=== PATIENT | male | born 1955 | race Caucasian/White ===

== ENCOUNTER 2016-08-09 22:53 | Inpatient (IN) | payer BC ==
[~2016-08-09] VITALS: Ht 182.9 cm; Wt 95.1 kg
[~2016-08-09 22:53] MED LIST: Aspirin E.C. PO; CARDIZEM30 MG PO; COZAAR50 MG PO; CRESTOR5 MG PO; Cozaar PO; GABAPENTIN100 MG PO; HYDROCHLOROTH12.5 M3 PO; INVanz IV; LANOXIN,DIGIT0.25 MG PO; LOPRESSOR25 MG PO; Levothroid,Synthroid PO; Motrin PO; Norvasc PO; NovoLOG, HumaLOG SC; Roxicet,Percocet 5/3 PO; TELMISARTAN80 MG PO; TRAMADOL HCL50 MG PO; Tirosint PO; ZITHROMAX Z-PA250 MG PO
[2016-08-09 23:33] LABS: HEMATOCRIT 28.7 % (38.0-50.0); MCH 29.4 PG (29.0-34.0); MCHC 31.4 G/DL (30.0-36.0); MCV 93.8 FL (86-99); MEAN PLAT.VOLUME 10.4 uM^3 (9.0-12.4); PLATELET COUNT 268 K/uL (156-360); RBC DIS.WIDTH-CV 13.8 % (11.8-14.6); RBC DIS.WIDTH-SD 46.5 % (39-53); RED BLOOD COUNT 3.06 M/uL (4.00-5.50)
[2016-08-09 23:34] LABS: WHITE BLOOD COUNT 9.3 K/uL (4.1-10.2)
[2016-08-09 23:42] LABS: CHLORIDE 106 mEq/L (99-109); POTASSIUM 5.1 mEq/L (3.7-5.4); SODIUM 137 mEq/L (136-147)
[2016-08-09 23:45] LABS: ANION GAP 10 MEQ/L (2-14)
[2016-08-09 23:47] LABS: GFR ESTIMATE (CALCULATED) 17 mL/min/; GLUCOSE 585 mg/dL (70-99)
[2016-08-09 23:50] LABS: UREA NITROGEN (BUN) 62 mg/dL (9-23)
[2016-08-09 23:57] LABS: TROP-I INTERPRETATION POSITIVE; TROPONIN-I 0.62 ng/mL (0.0-0.30)
[2016-08-10] MEDS ORDERED: CARDIZEM CD,CA180 MG PO (00:35)
[2016-08-10] MEDS ORDERED: LEVOTHYROXINE125 MCG PO (00:37)
[2016-08-10] MEDS ORDERED: NOVOLOG PE100 UNITS/ SC (00:38)
[2016-08-10] MEDS ORDERED: COZAAR50 MG PO (00:39)
[2016-08-10] MEDS ORDERED: ADULT LOW DOSE81 M1 PO (00:39)
[2016-08-10] MEDS ORDERED: TRESIBA FL100 UNIT/1 SC (00:40)
[2016-08-10] MEDS ORDERED: SPIRIVA1 INHALATI IH (00:41)
[2016-08-10] MEDS ORDERED: ROCALTROL0.25 MCG PO (00:41)
[2016-08-10] MEDS ORDERED: DOMP10T PO (00:42)
[2016-08-10 00:43] LABS: CARBON DIOXIDE (BICARBONATE) 24.6 MEQ/L (20-31)
[2016-08-10 00:46] LABS: PROTHROMBIN TIME 10.2 (9.2-11.2); PTT 27.9 (25-32)
[2016-08-10 02:07] LABS: POINT-OF-CARE METER ID UU14100415
[2016-08-10 03:30] VITALS: BP 156/75
[2016-08-10 06:10] LABS: POINT-OF-CARE METER ID UU13113698
[2016-08-10 07:00] VITALS: BP 138/68
[2016-08-10 08:06] LABS: TROP-I INTERPRETATION POSITIVE; TROPONIN-I 0.81 ng/mL (0.0-0.30)
[2016-08-10 09:34] LABS: POINT-OF-CARE METER ID UU13113781
[2016-08-10 11:15] VITALS: BP 155/79
[2016-08-10 14:56] LABS: TROP-I INTERPRETATION POSITIVE; TROPONIN-I 0.67 ng/mL (0.0-0.30)
[2016-08-10 16:15] VITALS: BP 160/77
[2016-08-10 16:22] LABS: POINT-OF-CARE METER ID UU14174216
[2016-08-10 19:10] VITALS: BP 149/75
[2016-08-10 20:35] LABS: POINT-OF-CARE METER ID UU13113698
[2016-08-10 23:00] VITALS: BP 120/59
[2016-08-11 03:50] VITALS: BP 133/69
[2016-08-11 05:35] LABS: CHLORIDE 108 mEq/L (99-109); POTASSIUM 4.3 mEq/L (3.7-5.4); SODIUM 138 mEq/L (136-147)
[2016-08-11 05:38] LABS: CHLORIDE 107 mEq/L (99-109); POTASSIUM 4.3 mEq/L (3.7-5.4); SODIUM 138 mEq/L (136-147)
[2016-08-11 05:39] LABS: ANION GAP 7 MEQ/L (2-14); GLUCOSE 89 mg/dL (70-99)
[2016-08-11 05:41] LABS: ANION GAP 7 MEQ/L (2-14); GFR ESTIMATE (CALCULATED) 18 mL/min/
[2016-08-11 05:42] LABS: TOTAL BILIRUBIN 0.1 mg/dL (0.0-1.0); UREA NITROGEN (BUN) 63 mg/dL (9-23)
[2016-08-11 05:43] LABS: ALKALINE PHOSPHATASE 75 IU/L (3-129)
[2016-08-11 05:44] LABS: GFR ESTIMATE (CALCULATED) 18 mL/min/; URIC ACID 8.5 mg/dL (3.1-9.2)
[2016-08-11 05:45] LABS: UREA NITROGEN (BUN) 62 mg/dL (9-23)
[2016-08-11 05:52] LABS: GLUCOSE 90 mg/dL (70-99)
[2016-08-11 07:15] VITALS: BP 147/73
[2016-08-11 07:31] LABS: POINT-OF-CARE METER ID UU13113698
[2016-08-11 07:49] LABS: POINT-OF-CARE METER ID UU13113698
[2016-08-11 08:11] LABS: POINT-OF-CARE METER ID UU13113698
[2016-08-11 11:47] LABS: POINT-OF-CARE METER ID UU13113698
[2016-08-11 13:28] LABS: POINT-OF-CARE METER ID UU13113698
[2016-08-11 16:15] VITALS: BP 160/78
[2016-08-11 21:00] VITALS: BP 156/78
[2016-08-11 21:33] LABS: POINT-OF-CARE METER ID UU14174216
[2016-08-11 23:47] VITALS: BP 144/77
[2016-08-12 04:00] VITALS: BP 124/69
[2016-08-12 06:56] LABS: EOSINOPHIL (%) 2.3 % (0-5); EOSINOPHIL COUNT 0.2 K/uL (0-0.3); IMMATURE GRANULOCYTE (%) 0.3 % (0.0-0.7); INSTRUMENT ABS NEUTROPHIL CT 4.2 K/uL; LYMPHOCYTE COUNT 2.1 K/uL (1.0-2.8); MCH 29.4 PG (29.0-34.0); MCHC 31.5 G/DL (30.0-36.0); MCV 93.2 FL (86-99); MEAN PLAT.VOLUME 10.9 uM^3 (9.0-12.4); MONOCYTE (%) 11.1 % (3-12); MONOCYTE COUNT 0.8 K/uL (0-0.8); NEUTROPHIL (%) 57.7 % (45-76); NEUTROPHIL COUNT 4.2 K/uL (1.8-6.4); PLATELET COUNT 277 K/uL (156-360); RBC DIS.WIDTH-CV 13.6 % (11.8-14.6); RED BLOOD COUNT 2.79 M/uL (4.00-5.50); WHITE BLOOD COUNT 7.3 K/uL (4.1-10.2)
[2016-08-12 07:25] LABS: ANION GAP 10 MEQ/L (2-14); CHLORIDE 106 MEQ/L (99-109); GFR ESTIMATE (CALCULATED) 19 mL/min/; GLUCOSE 60 mg/dL (70-99); POTASSIUM 4.3 MEQ/L (3.7-5.4); SAMPLE HEMOLYSIS CHECK 0; SAMPLE ICTERIC CHECK 0; SAMPLE LIPEMIA CHECK 0; SODIUM 141 MEQ/L (136-147); UREA NITROGEN (BUN) 63 mg/dL (9-23)
[2016-08-12 07:43] LABS: POINT-OF-CARE METER ID UU14174216
[2016-08-12 08:30] VITALS: BP 161/76
[2016-08-12 08:57] LABS: POINT-OF-CARE METER ID UU14174216
[2016-08-12 11:24] LABS: POINT-OF-CARE METER ID UU14174216
[2016-08-12 12:03] VITALS: BP 179/92
[2016-08-12 16:00] VITALS: BP 164/86
[2016-08-12 16:23] LABS: POINT-OF-CARE METER ID UU14174216
[2016-08-12 20:10] VITALS: BP 156/73
[2016-08-12 22:37] LABS: POINT-OF-CARE METER ID UU13113698
[2016-08-12 23:14] VITALS: BP 160/78
[2016-08-13 03:45] VITALS: BP 143/70
[2016-08-13 07:06] LABS: ANION GAP 7 MEQ/L (2-14); CHLORIDE 104 MEQ/L (99-109); GFR ESTIMATE (CALCULATED) 18 mL/min/; GLUCOSE 67 mg/dL (70-99); POTASSIUM 4.3 MEQ/L (3.7-5.4); SAMPLE HEMOLYSIS CHECK 0; SAMPLE ICTERIC CHECK 0; SAMPLE LIPEMIA CHECK 0; SODIUM 137 MEQ/L (136-147); UREA NITROGEN (BUN) 61 mg/dL (9-23)
[2016-08-13 07:08] LABS: POINT-OF-CARE METER ID UU14174216
[2016-08-13 09:25] VITALS: BP 162/79
[2016-08-13 11:14] LABS: POINT-OF-CARE METER ID UU14174216
[2016-08-13 16:30] VITALS: BP 150/72
[2016-08-13 16:34] LABS: POINT-OF-CARE METER ID UU13113781
[2016-08-13 19:20] VITALS: BP 142/67
[2016-08-13 21:37] LABS: POINT-OF-CARE METER ID UU13113781
[2016-08-14] VITALS (7 sets, daily range): BP systolic 131–175; BP diastolic 62–83
[2016-08-14 07:35] LABS: EOSINOPHIL (%) 2.9 % (0-5); EOSINOPHIL COUNT 0.2 K/uL (0-0.3); HEMATOCRIT 26.6 % (38.0-50.0); IMMATURE GRANULOCYTE (%) 0.3 % (0.0-0.7); INSTRUMENT ABS NEUTROPHIL CT 4.4 K/uL; LYMPHOCYTE COUNT 1.7 K/uL (1.0-2.8); MCH 28.9 PG (29.0-34.0); MCHC 30.8 G/DL (30.0-36.0); MCV 93.7 FL (86-99); MEAN PLAT.VOLUME 10.5 uM^3 (9.0-12.4); MONOCYTE (%) 11.6 % (3-12); MONOCYTE COUNT 0.8 K/uL (0-0.8); NEUTROPHIL (%) 61.2 % (45-76); NEUTROPHIL COUNT 4.4 K/uL (1.8-6.4); PLATELET COUNT 257 K/uL (156-360); RBC DIS.WIDTH-CV 13.8 % (11.8-14.6); RBC DIS.WIDTH-SD 47.2 % (39-53); RED BLOOD COUNT 2.84 M/uL (4.00-5.50); WHITE BLOOD COUNT 7.2 K/uL (4.1-10.2)
[2016-08-14 07:38] LABS: POINT-OF-CARE METER ID UU13113781
[2016-08-14 07:58] LABS: ANION GAP 8 MEQ/L (2-14); CHLORIDE 105 MEQ/L (99-109); GFR ESTIMATE (CALCULATED) 18 mL/min/; POTASSIUM 4.9 MEQ/L (3.7-5.4); SAMPLE HEMOLYSIS CHECK 0; SAMPLE ICTERIC CHECK 0; SAMPLE LIPEMIA CHECK 0; SODIUM 139 MEQ/L (136-147); UREA NITROGEN (BUN) 66 mg/dL (9-23)
[2016-08-14 08:06] LABS: GLUCOSE 157 mg/dL (70-99)
[2016-08-14 11:41] LABS: POINT-OF-CARE METER ID UU13113819
[2016-08-14 16:40] LABS: POINT-OF-CARE METER ID UU13113698
[2016-08-14 21:03] LABS: POINT-OF-CARE METER ID UU13113781
[2016-08-15 04:33] VITALS: BP 160/70
[2016-08-15 07:07] LABS: EOSINOPHIL (%) 2.1 % (0-5); EOSINOPHIL COUNT 0.2 K/uL (0-0.3); HEMATOCRIT 26.3 % (38.0-50.0); IMMATURE GRANULOCYTE (%) 0.4 % (0.0-0.7); INSTRUMENT ABS NEUTROPHIL CT 5.9 K/uL; LYMPHOCYTE COUNT 1.5 K/uL (1.0-2.8); MCH 29.4 PG (29.0-34.0); MCHC 30.4 G/DL (30.0-36.0); MCV 96.7 FL (86-99); MEAN PLAT.VOLUME 10.9 uM^3 (9.0-12.4); MONOCYTE (%) 10.2 % (3-12); MONOCYTE COUNT 0.9 K/uL (0-0.8); NEUTROPHIL (%) 68.8 % (45-76); NEUTROPHIL COUNT 5.9 K/uL (1.8-6.4); PLATELET COUNT 245 K/uL (156-360); RBC DIS.WIDTH-CV 13.9 % (11.8-14.6); RBC DIS.WIDTH-SD 49.1 % (39-53); RED BLOOD COUNT 2.72 M/uL (4.00-5.50); WHITE BLOOD COUNT 8.5 K/uL (4.1-10.2)
[2016-08-15 07:15] LABS: ANION GAP 7 MEQ/L (2-14); CHLORIDE 103 MEQ/L (99-109); GFR ESTIMATE (CALCULATED) 18 mL/min/; MAGNESIUM 2.3 mg/dl (1.3-2.7); SAMPLE HEMOLYSIS CHECK 0; SAMPLE ICTERIC CHECK 0; SAMPLE LIPEMIA CHECK 0; SODIUM 135 MEQ/L (136-147); UREA NITROGEN (BUN) 67 mg/dL (9-23)
[2016-08-15 07:16] LABS: GLUCOSE 264 mg/dL (70-99); POTASSIUM 5.9 MEQ/L (3.7-5.4)
[2016-08-15 08:12] LABS: POINT-OF-CARE METER ID UU13113698
[2016-08-15 09:00] VITALS: BP 136/65
[2016-08-15 11:14] LABS: POINT-OF-CARE METER ID UU13113698
[2016-08-15] MEDS ORDERED: AMLODIPINE BESYL5 MG PO (14:54)
[2016-08-15] MEDS ORDERED: CARVEDILOL6.25 MG PO (14:54)
[2016-08-15] MEDS ORDERED: LASIX80 MG PO (14:54)
== END 2016-08-15 17:16 | disposition home or self-care (01) | DRG 280 ==
LOC: EME 22:53 → 4EAST 08-10 00:58 → EDOF 08-10 00:58 → 4EAST 08-10 03:24
PROVIDERS: Emergency Medicine; Internal Medicine; Internal Medicine Nephrology; Physician Assistant
DX: I21.4 Non-ST elevation (NSTEMI) myocardial infarction (principal); I50.31 Acute diastolic (congestive) heart failure; N17.9 Acute kidney failure, unspecified; N18.4 Chronic kidney disease, stage 4 (severe); L97.419 Non-pressure chronic ulcer of right heel and midfoot with unspecified severity; I13.0 Hypertensive heart and chronic kidney disease with heart failure and stage 1 through stage 4 chronic kidney disease, or unspecified chronic kidney disease; E11.21 Type 2 diabetes mellitus with diabetic nephropathy; E11.65 Type 2 diabetes mellitus with hyperglycemia; E78.5 Hyperlipidemia, unspecified; F17.210 Nicotine dependence, cigarettes, uncomplicated; E11.22 Type 2 diabetes mellitus with diabetic chronic kidney disease; J44.9 Chronic obstructive pulmonary disease, unspecified; I27.2 Other secondary pulmonary hypertension; D63.1 Anemia in chronic kidney disease; I25.10 Atherosclerotic heart disease of native coronary artery without angina pectoris; E11.649 Type 2 diabetes mellitus with hypoglycemia without coma; E87.5 Hyperkalemia; E11.621 Type 2 diabetes mellitus with foot ulcer; E86.0 Dehydration; E11.319 Type 2 diabetes mellitus with unspecified diabetic retinopathy without macular edema; E11.40 Type 2 diabetes mellitus with diabetic neuropathy, unspecified; G47.30 Sleep apnea, unspecified; I08.1 Rheumatic disorders of both mitral and tricuspid valves; Z89.619 Acquired absence of unspecified leg above knee
CPT/HCPCS: 36415; 71010; 80048; 80053; 80069; 81003; 82010; 82803; 82948; 83605; 83735; 83880; 84132 91; 84484; 84550; 85025; 85027; 85610; 85730; 93005; 93306; 94640; 94640 76; 94799; 99281; 99285; C1760; C1769; C1887; C1894; J1644; J1815; J1940; J2250; J3010; J7608

== ENCOUNTER 2017-06-15 17:43 | Inpatient (IN) | payer BC ==
[~2017-06-15] VITALS: Ht 182.9 cm; Wt 90.3 kg
[~2017-06-15 17:43] MED LIST changes: +ADULT LOW DOSE81 M1 PO; +AMLODIPINE BESYL5 MG PO; +CARDIZEM CD,CA180 MG PO; +CARVEDILOL6.25 MG PO; +DOMP10T PO; +LASIX80 MG PO; +LEVOTHYROXINE112 MCG PO; +NOVOLOG PE100 UNITS/ SC; +ROCALTROL0.25 MCG PO; +SPIRIVA1 INHALATI IH; +TRESIBA FL100 UNIT/1 SC
[2017-06-15 18:33] LABS: HEMATOCRIT 28.1 % (38.0-50.0); MCH 29.9 PG (29.0-34.0); MCV 93.4 FL (86-99); PLATELET COUNT 199 K/uL (156-360); RBC DIS.WIDTH-CV 13.3 % (11.8-14.6); RBC DIS.WIDTH-SD 45.6 % (39-53); RED BLOOD COUNT 3.01 M/uL (4.00-5.50)
[2017-06-15 18:40] LABS: INTER. NORMALIZED RATIO 1.1
[2017-06-15 18:41] LABS: CHLORIDE 103 mEq/L (99-109); POTASSIUM 4.2 mEq/L (3.7-5.4); SODIUM 137 mEq/L (136-147)
[2017-06-15 18:42] LABS: PTT 28.4 SEC (25-37)
[2017-06-15 18:43] LABS: GLUCOSE 129 mg/dL (70-99)
[2017-06-15 18:47] LABS: CREATININE 5.8 mg/dL (0.6-1.3); GFR ESTIMATE (CALCULATED) 11 mL/min/ (58.99-99999); UREA NITROGEN (BUN) 84 mg/dL (9-23)
[2017-06-15 18:55] LABS: TROP-I INTERPRETATION NEGATIVE; TROPONIN-I 0.06 ng/mL (0.0-0.30)
[2017-06-15] MEDS ORDERED: FUROSEMIDE40 MG PO (19:37)
[2017-06-15] MEDS ORDERED: CALCIUM ACETAT667 MG PO (19:43)
[2017-06-15] MEDS ORDERED: VITAMIN B125000 MCG PO (19:44)
[2017-06-15] MEDS ORDERED: VITAMIN D2000 UNIT PO (19:44)
[2017-06-15] MEDS ORDERED: HYDRALAZINE HCL10 MG PO (19:45)
[2017-06-15] MEDS ORDERED: METOPROLOL SUCC50 MG PO (19:46)
[2017-06-15] MEDS ORDERED: GABAPENTIN100 MG PO (19:47)
[2017-06-15] MEDS ORDERED: CLONIDINE HCL0.1 MG PO (19:49)
[2017-06-15] MEDS ORDERED: ZANTAC150 MG PO (19:50)
[2017-06-15] MEDS ORDERED: TRAMADOL HCL50 MG PO (19:50)
[2017-06-15] MEDS ORDERED: VENTOLIN HFA18 GM IH (19:51)
[2017-06-16] VITALS (7 sets, daily range): BP systolic 130–188; BP diastolic 60–88
[2017-06-16 05:44] LABS: BASOPHIL (%) 0.4 % (0-1); EOSINOPHIL (%) 0.8 % (0-5); HEMATOCRIT 25.5 % (38.0-50.0); HEMOGLOBIN 8.1 G/DL (12.5-16.6); IMMATURE GRANULOCYTE (%) 0.4 % (0.0-0.7); LYMPHOCYTE (%) 22.1 % (15-42); LYMPHOCYTE COUNT 1.1 K/uL (1.0-2.8); MCH 30.1 PG (29.0-34.0); MCHC 31.8 G/DL (30.0-36.0); MCV 94.8 FL (86-99); MONOCYTE (%) 13.6 % (3-12); MONOCYTE COUNT 0.7 K/uL (0-0.8); NEUTROPHIL (%) 62.7 % (45-76); NEUTROPHIL COUNT 3.2 K/uL (1.8-6.4); PLATELET COUNT 166 K/uL (156-360); RBC DIS.WIDTH-CV 13.4 % (11.8-14.6); RBC DIS.WIDTH-SD 46.3 % (39-53); RED BLOOD COUNT 2.69 M/uL (4.00-5.50); WHITE BLOOD COUNT 5.1 K/uL (4.1-10.2)
[2017-06-16 06:06] LABS: CHLORIDE 104 MEQ/L (99-109); CREATININE 6.2 MG/DL (0.6-1.3); GFR ESTIMATE (CALCULATED) 10 mL/min/ (58.99-99999); POTASSIUM 3.8 MEQ/L (3.7-5.4); SODIUM 140 MEQ/L (136-147); UREA NITROGEN (BUN) 82 mg/dL (9-23)
[2017-06-16 06:10] LABS: GLUCOSE 44 mg/dL (70-99)
[2017-06-16 08:12] LABS: THYROTROPIN (TSH) 0.18 MIU/L (0.4-5.5)
[2017-06-16 10:38] LABS: IRON 20 MCG/DL (35-150); PHOSPHORUS 7.1 mg/dL (2.5-4.9); TRANSFERRIN (TIBC) 168.6 mg/dL (215-380); TRANSFERRIN SATUR. 12 % (20-55)
[2017-06-17 03:35] VITALS: BP 151/68
[2017-06-17 06:17] LABS: HEMATOCRIT 27.1 % (38.0-50.0); HEMOGLOBIN 8.7 G/DL (12.5-16.6); MCH 30.1 PG (29.0-34.0); MCHC 32.1 G/DL (30.0-36.0); MCV 93.8 FL (86-99); PLATELET COUNT 178 K/uL (156-360); RBC DIS.WIDTH-CV 13.2 % (11.8-14.6); RBC DIS.WIDTH-SD 45.5 % (39-53); RED BLOOD COUNT 2.89 M/uL (4.00-5.50); WHITE BLOOD COUNT 4.9 K/uL (4.1-10.2)
[2017-06-17 06:45] LABS: ALBUMIN 2.6 G/DL (3.2-4.8); CHLORIDE 103 MEQ/L (99-109); CREATININE 6.4 MG/DL (0.6-1.3); GFR ESTIMATE (CALCULATED) 9 mL/min/ (58.99-99999); PHOSPHORUS 6.3 mg/dL (2.5-4.9); POTASSIUM 4.1 MEQ/L (3.7-5.4); SODIUM 140 MEQ/L (136-147); UREA NITROGEN (BUN) 84 mg/dL (9-23)
[2017-06-17 06:52] LABS: GLUCOSE 155 mg/dL (70-99)
[2017-06-17 07:32] VITALS: BP 142/65
[2017-06-17] MEDS ORDERED: AZITHROMYCIN250 MG1 PO (11:59)
[2017-06-17] MEDS ORDERED: CEFDINIR300 MG PO (12:00)
[2017-06-17] MEDS ORDERED: ARANESP60 MCG/0.3 SC (12:03)
[2017-06-17] MEDS ORDERED: OSELTAMIVIR PHO30 MG PO (12:03)
[2017-06-17] MEDS ORDERED: IRON325 M1 PO (12:10)
== END 2017-06-17 14:30 | disposition home or self-care (01) | DRG 194 ==
LOC: EME 17:43 → 5SOUTH 19:28 → ENRESERV 19:28 → EDOF 19:28 → ENRESERV 20:02 → 5SOUTH 20:40
PROVIDERS: Emergency Medicine; Hospitalist; Internal Medicine
DX: J10.08 Influenza due to other identified influenza virus with other specified pneumonia (principal); J15.9 Unspecified bacterial pneumonia; J10.01 Influenza due to other identified influenza virus with the same other identified influenza virus pneumonia; J44.0 Chronic obstructive pulmonary disease with (acute) lower respiratory infection; I13.2 Hypertensive heart and chronic kidney disease with heart failure and with stage 5 chronic kidney disease, or end stage renal disease; I50.32 Chronic diastolic (congestive) heart failure; N18.5 Chronic kidney disease, stage 5; E11.22 Type 2 diabetes mellitus with diabetic chronic kidney disease; E11.21 Type 2 diabetes mellitus with diabetic nephropathy; E11.42 Type 2 diabetes mellitus with diabetic polyneuropathy; E11.51 Type 2 diabetes mellitus with diabetic peripheral angiopathy without gangrene; D63.1 Anemia in chronic kidney disease; D50.9 Iron deficiency anemia, unspecified; E78.5 Hyperlipidemia, unspecified; E83.39 Other disorders of phosphorus metabolism; I25.10 Atherosclerotic heart disease of native coronary artery without angina pectoris; N25.81 Secondary hyperparathyroidism of renal origin; E03.9 Hypothyroidism, unspecified; I25.2 Old myocardial infarction; Z79.4 Long term (current) use of insulin; Z95.1 Presence of aortocoronary bypass graft; Z87.891 Personal history of nicotine dependence; Z79.82 Long term (current) use of aspirin
CPT/HCPCS: 71046; 80048; 80069; 82948; 83540; 84100; 84439; 84443; 84466; 84484; 85025; 85027; 85610; 85730; 87040; 87502; 93005; 94799; 99202; 99281; 99283; J0456; J0696; J0881; J1644; J1756; J7050

== ENCOUNTER → 2017-07-23 | Outpatient (CLI) | payer BC ==
[~2017-07-23] VITALS: Ht 182.9 cm; Wt 81.6 kg
[~2017-07-23] MED LIST changes: +APRESOLINE10 MG PO; +ARANESP60 MCG/0.3 SC; +AZITHROMYCIN250 MG1 PO; +CALCIUM ACETAT667 MG PO; +CEFDINIR300 MG PO; +CLONIDINE HCL0.1 MG PO; +FEOSOL325 MG PO; +FUROSEMIDE40 MG PO; +IRON325 M1 PO; +METOPROLOL SUCC50 MG PO; +NORVASC5 MG PO; +OSELTAMIVIR PHO30 MG PO; +PROCRIT2000 UNIT1 SC; +RENVELA800 MG PO; +VELTASSA8.4 GM PO; +VENTOLIN HFA18 GM IH; +VITAMIN B125000 MCG PO; +VITAMIN D2000 UNIT PO; +ZANTAC150 MG PO
== END | disposition home or self-care (01) ==
LOC: AMB 07-02 12:00
PROVIDERS: Internal Medicine Gastroenterology
PROC: 0DJD8ZZ Inspection of Lower Intestinal Tract, Via Natural or Artificial Opening Endoscopic (ICD-10-PCS; principal; 2017-07-23)
DX: D12.2 Benign neoplasm of ascending colon (principal); Z86.010 Personal history of colon polyps; Z53.09 Procedure and treatment not carried out because of other contraindication; N28.9 Disorder of kidney and ureter, unspecified; I10 Essential (primary) hypertension; E03.9 Hypothyroidism, unspecified; E10.319 Type 1 diabetes mellitus with unspecified diabetic retinopathy without macular edema; E10.21 Type 1 diabetes mellitus with diabetic nephropathy; E78.5 Hyperlipidemia, unspecified; Z87.891 Personal history of nicotine dependence; Z79.4 Long term (current) use of insulin; Z79.82 Long term (current) use of aspirin; Z88.8 Allergy status to other drugs, medicaments and biological substances
CPT/HCPCS: 82948; J2250

== ENCOUNTER → 2017-08-14 | Outpatient (CLI) | payer BC ==
[~2017-08-14] VITALS: Ht 188 cm; Wt 89.8 kg
[~2017-08-14] MED LIST changes: +CALCITRIOL0.25 MCG PO; +PROCRIT3000 UNIT1 SC; +PROTONIX40 MG PO; +SUPREP BOWEL P354 ML PO
== END | disposition home or self-care (01) ==
LOC: AMB 11:59
PROVIDERS: Internal Medicine Gastroenterology
PROC: 0DBK8ZX Excision of Ascending Colon, Via Natural or Artificial Opening Endoscopic, Diagnostic (ICD-10-PCS; principal; 2017-08-14)
DX: D12.2 Benign neoplasm of ascending colon (principal)
CPT/HCPCS: 82948; 88305; J1170; J2250; J2405

== ENCOUNTER 2017-08-23 18:45 | Observation (INO) | payer BC ==
[~2017-08-23] VITALS: Ht 182.9 cm; Wt 89.5 kg
[2017-08-23] MEDS ORDERED: AMLODIPINE BESYL5 MG PO (20:55)
[2017-08-23 21:00] LABS: HEMATOCRIT 28.8 % (38.0-50.0); HEMOGLOBIN 9.4 G/DL (12.5-16.6); MCHC 32.6 G/DL (30.0-36.0); PLATELET COUNT 228 K/uL (156-360); RBC DIS.WIDTH-CV 13.2 % (11.8-14.6); RBC DIS.WIDTH-SD 43.9 % (39-53); RED BLOOD COUNT 3.13 M/uL (4.00-5.50); WHITE BLOOD COUNT 10.8 K/uL (4.1-10.2)
[2017-08-23 21:10] LABS: ALBUMIN 3.2 g/dL (3.2-4.8); CHLORIDE 102 mEq/L (99-109); POTASSIUM 5.1 mEq/L (3.7-5.4); SODIUM 137 mEq/L (136-147)
[2017-08-23 21:12] LABS: TOTAL PROTEIN 6.1 g/dL (6.4-8.3)
[2017-08-23 21:14] LABS: TOTAL BILIRUBIN 0.3 mg/dL (0.0-1.0)
[2017-08-23 21:16] LABS: ALKALINE PHOSPHATASE 79 IU/L (3-129); CREATININE 5.8 mg/dL (0.6-1.3); GFR ESTIMATE (CALCULATED) 11 mL/min/ (58.99-99999)
[2017-08-23 21:17] LABS: UREA NITROGEN (BUN) 90 mg/dL (9-23)
[2017-08-23 21:18] LABS: AST (GOT) 10 IU/L (2-34)
[2017-08-23 21:19] LABS: ALT (GPT) 11 IU/L (3-49)
[2017-08-23] MEDS ORDERED: ZANTAC150 MG PO (21:19)
[2017-08-23] MEDS ORDERED: VENTOLIN HFA18 GM IH (21:20)
[2017-08-23 21:21] LABS: GLUCOSE 411 mg/dL (70-99)
[2017-08-23 23:45] VITALS: BP 145/70
[2017-08-24 05:54] LABS: BASOPHIL (%) 0.5 % (0-1); EOSINOPHIL (%) 4.9 % (0-5); EOSINOPHIL COUNT 0.4 K/uL (0-0.3); HEMATOCRIT 24.5 % (38.0-50.0); HEMOGLOBIN 7.8 G/DL (12.5-16.6); IMMATURE GRANULOCYTE (%) 0.5 % (0.0-0.7); LYMPHOCYTE COUNT 1.5 K/uL (1.0-2.8); MCH 29.3 PG (29.0-34.0); MCHC 31.8 G/DL (30.0-36.0); MCV 92.1 FL (86-99); MONOCYTE (%) 7.9 % (3-12); MONOCYTE COUNT 0.6 K/uL (0-0.8); NEUTROPHIL (%) 66.2 % (45-76); PLATELET COUNT 188 K/uL (156-360); RBC DIS.WIDTH-CV 13.2 % (11.8-14.6); RBC DIS.WIDTH-SD 43.9 % (39-53); RED BLOOD COUNT 2.66 M/uL (4.00-5.50); WHITE BLOOD COUNT 7.6 K/uL (4.1-10.2)
[2017-08-24 06:12] LABS: CHLORIDE 108 MEQ/L (99-109); CREATININE 5.5 MG/DL (0.6-1.3); GFR ESTIMATE (CALCULATED) 11 mL/min/ (58.99-99999); POTASSIUM 4.1 MEQ/L (3.7-5.4); SODIUM 142 MEQ/L (136-147); UREA NITROGEN (BUN) 77 mg/dL (9-23)
[2017-08-24 06:13] LABS: GLUCOSE 96 mg/dL (70-99)
[2017-08-24 07:40] VITALS: BP 183/77
[2017-08-24 10:49] LABS: HEMATOCRIT 24.9 % (38.0-50.0); MCV 92.2 FL (86-99)
[2017-08-24 16:27] VITALS: BP 178/84
[2017-08-24 16:31] LABS: IRON 32 MCG/DL (35-150)
[2017-08-24 16:32] LABS: TRANSFERRIN SATUR. 20 % (20-55)
[2017-08-25 06:10] LABS: HEMATOCRIT 24.4 % (38.0-50.0); HEMOGLOBIN 7.9 G/DL (12.5-16.6); MCH 30.2 PG (29.0-34.0); MCHC 32.4 G/DL (30.0-36.0); MCV 93.1 FL (86-99); PLATELET COUNT 193 K/uL (156-360); RBC DIS.WIDTH-CV 13.3 % (11.8-14.6); RBC DIS.WIDTH-SD 44.6 % (39-53); RED BLOOD COUNT 2.62 M/uL (4.00-5.50); WHITE BLOOD COUNT 7.5 K/uL (4.1-10.2)
[2017-08-25 06:34] LABS: CHLORIDE 105 MEQ/L (99-109); CREATININE 5.3 MG/DL (0.6-1.3); GFR ESTIMATE (CALCULATED) 12 mL/min/ (58.99-99999); POTASSIUM 4.5 MEQ/L (3.7-5.4); SODIUM 141 MEQ/L (136-147); UREA NITROGEN (BUN) 81 mg/dL (9-23)
[2017-08-25 06:44] LABS: GLUCOSE 36 mg/dL (70-99)
[2017-08-25 07:43] VITALS: BP 153/73
[2017-08-25 10:19] LABS: HEMOGLOBIN A1c (GLYCOHEMOGLOB) 12.6 % (Below 5.7)
[2017-08-25] MEDS ORDERED: APRESOLINE50 MG PO (11:52)
[2017-08-25] MEDS ORDERED: CEFDINIR300 MG PO (11:53)
== END 2017-08-25 14:45 | disposition home or self-care (01) ==
LOC: EME 18:45 → EDOF 22:02 → 5EAST 22:02 → EDOF 22:02 → ENRESERV 22:11 → 5EAST 23:45 → ENPENDDIS 08-25 → 5EAST 08-25 14:45
PROVIDERS: Internal Medicine; Nurse Practitioner Family
DX: J18.9 Pneumonia, unspecified organism (principal); I13.2 Hypertensive heart and chronic kidney disease with heart failure and with stage 5 chronic kidney disease, or end stage renal disease; E11.22 Type 2 diabetes mellitus with diabetic chronic kidney disease; I50.32 Chronic diastolic (congestive) heart failure; N18.6 End stage renal disease; J44.0 Chronic obstructive pulmonary disease with (acute) lower respiratory infection; R13.10 Dysphagia, unspecified; N25.81 Secondary hyperparathyroidism of renal origin; E86.0 Dehydration; E83.39 Other disorders of phosphorus metabolism; E83.51 Hypocalcemia; E11.65 Type 2 diabetes mellitus with hyperglycemia; E11.649 Type 2 diabetes mellitus with hypoglycemia without coma; E11.42 Type 2 diabetes mellitus with diabetic polyneuropathy; E11.51 Type 2 diabetes mellitus with diabetic peripheral angiopathy without gangrene; G47.30 Sleep apnea, unspecified; E78.5 Hyperlipidemia, unspecified; E03.9 Hypothyroidism, unspecified; D50.9 Iron deficiency anemia, unspecified; D63.1 Anemia in chronic kidney disease; G43.909 Migraine, unspecified, not intractable, without status migrainosus; I25.10 Atherosclerotic heart disease of native coronary artery without angina pectoris; I25.2 Old myocardial infarction; K21.9 Gastro-esophageal reflux disease without esophagitis; M19.90 Unspecified osteoarthritis, unspecified site; Z79.4 Long term (current) use of insulin; Z83.3 Family history of diabetes mellitus; Z87.891 Personal history of nicotine dependence; Z76.82 Awaiting organ transplant status; Z95.1 Presence of aortocoronary bypass graft; Z99.2 Dependence on renal dialysis
CPT/HCPCS: 71046; 80048; 80053; 82272; 82948; 83036; 83540; 84100; 84466; 85014; 85018; 85025; 85027; 87040; 87651 90; 94640; 94640 76; 99202; 99281; 99284; G0378; J0456; J0696; J0881; J1644; J1756; J1815; J7050

== ENCOUNTER 2017-09-29 14:34 | Day surgery (SDC) | payer BC ==
[~2017-09-29] VITALS: Ht 182.9 cm; Wt 83.9 kg
[~2017-09-29 14:34] MED LIST changes: +APRESOLINE50 MG PO
[2017-09-29 14:57] VITALS: BP 175/79
[2017-09-29 15:14] LABS: HEMATOCRIT 31.7 % (38.0-50.0); HEMOGLOBIN 10.2 G/DL (12.5-16.6); MCH 30.4 PG (29.0-34.0); MCHC 32.2 G/DL (30.0-36.0); MCV 94.3 FL (86-99); PLATELET COUNT 245 K/uL (156-360); RBC DIS.WIDTH-CV 13.4 % (11.8-14.6); RBC DIS.WIDTH-SD 46.1 % (39-53); RED BLOOD COUNT 3.36 M/uL (4.00-5.50); WHITE BLOOD COUNT 7.9 K/uL (4.1-10.2)
[2017-09-29 15:25] LABS: CHLORIDE 106 MEQ/L (99-109); POTASSIUM 4.4 MEQ/L (3.7-5.4); SODIUM 142 MEQ/L (136-147)
[2017-09-29 15:31] LABS: CREATININE 5.2 MG/DL (0.6-1.3); GFR ESTIMATE (CALCULATED) 12 mL/min/ (58.99-99999); GLUCOSE 74 mg/dL (70-99); UREA NITROGEN (BUN) 73 mg/dL (9-23)
[2017-09-29 20:29] VITALS: BP 184/84
[2017-09-29 20:51] VITALS: BP 180/81
== END 2017-09-29 21:04 | disposition home or self-care (01) ==
LOC: SDC 14:34
PROVIDERS: Surgery
DX: I13.2 Hypertensive heart and chronic kidney disease with heart failure and with stage 5 chronic kidney disease, or end stage renal disease (principal); N18.6 End stage renal disease; E11.22 Type 2 diabetes mellitus with diabetic chronic kidney disease; I50.9 Heart failure, unspecified; I25.10 Atherosclerotic heart disease of native coronary artery without angina pectoris; I25.2 Old myocardial infarction; Z95.1 Presence of aortocoronary bypass graft; J44.9 Chronic obstructive pulmonary disease, unspecified; Z79.4 Long term (current) use of insulin
CPT/HCPCS: 71045; 80048; 82948; 85027; C1769; C1894; J0690; J1644; J2405